=== PATIENT | female | born 1980 | race Caucasian/White ===

== ENCOUNTER 2022-07-24 16:34 | Observation (INO) ==
[2022-07-24 18:09] LABS: Basophils # 0.1 K/mcL (0.0-0.2); Basophils % 0.9 %; Eosinophils # 0.4 K/mcL (0.0-0.6); Eosinophils % 3.3 %; Hematocrit 39.2 % (35.3-44.9); Hemoglobin 13.3 g/dL (11.5-15.4); Immature Granulocytes % 0.4 % (0-4); Lymphocytes # 1.6 K/mcL (0.6-4.6); Lymphocytes % 14.9 %; Mean Corpuscular HGB Conc 33.9 g/dL (31.6-35.5); Mean Corpuscular Hemoglobin 29.9 pg (28.0-33.3); Mean Corpuscular Volume 88.1 fL (83.0-100.0); Monocytes # 0.9 K/mcL (0.0-1.3); Monocytes % 8.2 %; Neutrophils # 7.9 K/mcL (1.6-8.9); Platelet Count 288 K/mcL (140-400); Red Blood Count 4.45 M/mcL (3.82-4.97); Red Cell Distribution Width 12.5 % (11.5-14.5); Segmented Neutrophils % 72.3 %; White Blood Count 10.9 K/mcL (4.3-11.1)
[2022-07-24] MEDS ORDERED: Vancomycin (wt based) 1,000 MG VIAL IV STA (18:24)
[2022-07-24 18:28] LABS: BUN/Creatinine Ratio 19 (6-26); Blood Urea Nitrogen 14 mg/dL (6-20); Calcium 8.6 mg/dL (8.6-10.3); Carbon Dioxide 24 mEq/L (23-29); Chloride 106 mEq/L (98-107); Glucose 166 mg/dL (70-105); Osmolality,Calculated 290 (280-300); Potassium 3.8 mEq/L (3.5-5.1); Sodium 138 mEq/L (136-145)
[2022-07-24] MEDS ORDERED: Iopamidol - 370 500 ML MLS IVP ONE (18:52)
[2022-07-24] MEDS ORDERED: Vancomycin 1,500 MG/265 ML IV.SOLN IVPB ONE (19:00)
[2022-07-24] MEDS ORDERED: Lidocaine/EPI 1:100k 1% 10 ML Vial INFILT ONE (20:11)
[2022-07-24] MEDS ORDERED: Ondansetron 4 MG/2 ML VIAL IVP PRN (23:27)
[2022-07-24] MEDS ORDERED: Naloxone 0.4 MG/ML INJ IVP PRN (23:27)
[2022-07-24] MEDS ORDERED: Acetaminophen 325 MG TABLET PO PRN (23:27)
[2022-07-25] MEDS ORDERED: (Linaclotide [Linzess] 145 MCG Capsule) PO SCH (00:45)
[2022-07-25 05:11] LABS: Basophils # 0.1 K/mcL (0.0-0.2); Basophils % 1.1 %; Eosinophils # 0.4 K/mcL (0.0-0.6); Eosinophils % 4.7 %; Hematocrit 37.2 % (35.3-44.9); Hemoglobin 12.6 g/dL (11.5-15.4); Immature Granulocytes % 0.3 % (0-4); Lymphocytes # 2.5 K/mcL (0.6-4.6); Lymphocytes % 26.6 %; Mean Corpuscular HGB Conc 33.9 g/dL (31.6-35.5); Mean Corpuscular Hemoglobin 29.4 pg (28.0-33.3); Mean Corpuscular Volume 86.9 fL (83.0-100.0); Mean Platelet Volume 9.3 fL (9.4-12.4); Monocytes # 0.9 K/mcL (0.0-1.3); Monocytes % 9.2 %; Neutrophils # 5.4 K/mcL (1.6-8.9); Platelet Count 283 K/mcL (140-400); Red Blood Count 4.28 M/mcL (3.82-4.97); Red Cell Distribution Width 12.5 % (11.5-14.5); Segmented Neutrophils % 58.1 %; White Blood Count 9.3 K/mcL (4.3-11.1)
[2022-07-25 05:14] LABS: BUN/Creatinine Ratio 21 (6-26); Blood Urea Nitrogen 15 mg/dL (6-20); C-Reactive Protein 36 mg/L (Less than 10); Calcium 8.4 mg/dL (8.6-10.3); Carbon Dioxide 25 mEq/L (23-29); Chloride 103 mEq/L (98-107); Glucose 229 mg/dL (70-105); Magnesium 1.7 mg/dL (1.6-2.6); Osmolality,Calculated 292 (280-300); Phosphorous 4.3 mg/dL (2.7-4.5); Potassium 3.8 mEq/L (3.5-5.1); Prothrombin Time 11.2 Seconds (9.4-12.1); Sodium 137 mEq/L (136-145)
[2022-07-25] MEDS: Vancomycin 1,250 MG/262.5 ML IV.SOLN IVPB SCH ×2 (06:42→18:47)
[2022-07-25] MEDS: cloNIDine HCL 0.1 MG TABLET PO SCH ×3 (08:08→21:16)
[2022-07-25] MEDS: hydrALAZINE 25 MG TABLET PO SCH ×3 (08:08→21:16)
[2022-07-25] MEDS: (Linaclotide [Linzess] 145 MCG Capsule) PO SCH ×2 (08:09→21:16)
[2022-07-25] MEDS: Venlafaxine XR (24 HR) 75 MG CAP.ER.24H PO SCH (09:18)
[2022-07-25] MEDS: Ibuprofen 400 MG TABLET PO PRN ×2 (09:18→19:08)
[2022-07-25] MEDS: Ipratropium Neb 0.5 MG NEBULIZER IH PRN ×2 (11:40→20:09)
[2022-07-25] MEDS: Albuterol 2.5 MG/3 ML NEBULIZER IH PRN ×2 (11:40→20:09)
[2022-07-25] MEDS: Tiotropium 10 INH DOSE IH SCH (16:00)
[2022-07-25] MEDS ORDERED: diazePAM 10 MG TABLET PO SCH (21:00)
[2022-07-26] MEDS ORDERED: Melatonin 3 MG TABLET PO PRN (01:36)
[2022-07-26 03:05] LABS: Basophils # 0.1 K/mcL (0.0-0.2); Basophils % 0.9 %; Eosinophils # 0.5 K/mcL (0.0-0.6); Eosinophils % 3.9 %; Hematocrit 37.5 % (35.3-44.9); Hemoglobin 12.6 g/dL (11.5-15.4); Immature Granulocytes % 0.3 % (0-4); Lymphocytes # 3.6 K/mcL (0.6-4.6); Lymphocytes % 30.6 %; Mean Corpuscular HGB Conc 33.6 g/dL (31.6-35.5); Mean Corpuscular Volume 89.3 fL (83.0-100.0); Monocytes # 0.9 K/mcL (0.0-1.3); Monocytes % 7.4 %; Neutrophils # 6.7 K/mcL (1.6-8.9); Platelet Count 273 K/mcL (140-400); Red Cell Distribution Width 12.5 % (11.5-14.5); Segmented Neutrophils % 56.9 %; White Blood Count 11.8 K/mcL (4.3-11.1)
[2022-07-26 03:21] LABS: BUN/Creatinine Ratio 24 (6-26); Blood Urea Nitrogen 16 mg/dL (6-20); Calcium 8.2 mg/dL (8.6-10.3); Carbon Dioxide 23 mEq/L (23-29); Chloride 104 mEq/L (98-107); Glucose 218 mg/dL (70-105); Osmolality,Calculated 290 (280-300); Potassium 3.8 mEq/L (3.5-5.1); Sodium 136 mEq/L (136-145)
[2022-07-26 05:25] LABS: Bilirubin,Urine Negative (Negative); Blood,Urine Negative (Negative); Clarity,Urine Clear (Clear); Color,Urine Light-Yellow (Yellow); Glucose,Urine (UA) 200 mg/dL (Normal); Ketones,Urine Negative (Negative); Leukocyte Esterase,Urine Negative (Negative); Mucus,Urine Few per lpf (None-Few); Nitrite,Urine Negative (Negative); Protein,Urine Trace mg/dL (Neg-Trace); Squamous Epithelial Cell,Urine Few per hpf (None-Few); Urobilinogen,Urine Normal (Normal); WBC,Urine 0-3 per hpf (0-3)
[2022-07-26] MEDS: Vancomycin 1,250 MG/262.5 ML IV.SOLN IVPB SCH (06:27)
[2022-07-26 07:50] VITALS: BP 161/87; PULSE 74; TEMP 98.6; O2SAT 96
[2022-07-26] MEDS: hydrALAZINE 25 MG TABLET PO SCH (08:25)
[2022-07-26] MEDS: cloNIDine HCL 0.1 MG TABLET PO SCH (08:25)
[2022-07-26] MEDS: Venlafaxine XR (24 HR) 75 MG CAP.ER.24H PO SCH (08:25)
[2022-07-26] MEDS: (Linaclotide [Linzess] 145 MCG Capsule) PO SCH (08:26)
[2022-07-26] MEDS: Ibuprofen 400 MG TABLET PO PRN (08:27)
[2022-07-26] MEDS: Tiotropium 10 INH DOSE IH SCH (09:27)
[2022-07-26] MEDS ORDERED: Budesonide/Formoterol 160/4.5 1 PUFF INH IH SCH (10:00)
[2022-07-26] MEDS ORDERED: Tiotropium 10 INH DOSE IH SCH (10:00)
== END 2022-07-26 11:35 | disposition home or self-care (01) ==
LOC: EMEROOARM 16:34 → 2ANU 16:34 → SUATTDRO 22:45 → 2ANU 23:21
PROVIDERS: ADMIT Student in an Organized Health Care Education/Training Program; ATTEND Family Medicine